=== PATIENT | female | born 1975 | race Caucasian/White ===

== ENCOUNTER 2017-10-05 19:55 | Observation (INO) ==
[2017-10-05] MEDS ORDERED: NS 1,000 ML IV ONE (20:28)
--- NOTE | 2017-10-05 20:31 | Emergency Department Report ---
General Adult HPI - General Chief complaint: Medical Emergency <Arpita Hansen 10/05/17 20:31> Stated complaint: L side pain <Arpita Hansen 10/05/17 20:31> Time Seen by Provider: 10/05/17 20:19 <Arpita Hansen 10/05/17 20:31> Source: family ( who is at bedside) <Arpita Hansen 10/05/17 20:31> Mode of arrival: EMS <Arpita Hansen 10/05/17 20:31> Limitations: altered mental status <Arpita Hansen 10/05/17 20:31> - History of Present Illness HPI narrative: She is brought in by EMS tonight. Her report HPI. States that she has been having some low back pain and she had a steroid injection done recently (10/02/17). Tonight she was c/o back pain and he had her do some stretching on the floor. She got up and got onto the cough and started yelling out in pain. She has not spoken to him since. Can shake her head yes and no and does follow commands but she does not answer with words. She also can move all fingers and toes but does not lift up her extremities. She had been feeling well per her otherwise. <Arpita Hansen 10/05/17 20:35> Onset (ago): minute(s) <Arpita Hansen 10/05/17 20:31> Severity: moderate <Arpita Hansen 10/05/17 20:31> Relieving factors: none <Arpita Hansen 10/05/17 20:31> Exacerbating factors: none <Arpita Hansen 10/05/17 20:31> Associated symptoms: denies other symptoms <Arpita Hansen 10/05/17 20:31> Treatments prior to arrival: none <Arpita Hansen 10/05/17 20:31> - Related Data Home Medications Medication Instructions Recorded Confirmed Chlorzoxazone [Parafon Forte] 500 mg PO HS 10/05/17 10/05/17 Cholecalciferol (Vitamin D3) 5,000 unit PO DAILY 10/05/17 10/05/17 [Vitamin D3] Vitamin B 1 tab PO DAILY 10/05/17 10/05/17 <Arpita Hansen 10/05/17 20:31> Allergies Allergy/AdvReac Type Severity Reaction Status Date / Time oxycodone Allergy Severe Chest Verified 10/05/17 20:10 Tightness propoxyphene Allergy Intermediate Verified 10/05/17 20:10 tramadol Allergy Unknown CHEST Verified 10/05/17 20:10 TIGHTNESS <Arpita Hansen 10/05/17 20:31> Review of Systems Limitations: ROS unobtainable due to patient's medical condition <TyroneArpita 10/05/17 20:35> Constitutional: Denies: fever, chills <TyroneArpita 10/05/17 20:35> Gastrointestinal: Denies: nausea, vomiting, diarrhea <TyroneArpita Sun 20:35> Integumentary: Denies: rash <TyroneArpita 10/05/17 20:35> [facility] Patient Stated Medical History Depression Yes <Arpita Hansen 10/05/17 23:04> - Social History Smoking status: Never smoker <Arpita Hansen 10/05/17 20:35> Substance use type: does not use <Arpita Hansen 10/05/17 20:35> Alcohol intake frequency: does not drink <TyroneArpita 10/05/17 20:35> Physical Exam - Limitations Limitations: other (Medical Condition) <TyroneArpita 10/05/17 20:35> - General General appearance: alert, in no apparent distress <Arpita Hansen 10/05/17 20:35> - Normal Exams: Eyes:: Pupils are PERRLA w/ EOMI, No scleral icterus, irritation, or foreign bodies noted <TyroneArpita 10/05/17 20:35> ENMT:: No facial trauma, nasal exudates, pharyngeal erythema, or exudates are noted <MilagrosroldanArpita 10/05/17 20:35> Chest/Respirations:: Clear all ames, with good airflow, and symmetry bilaterally <Arpita Hansen 10/05/17 20:35> Cardiovascular:: Regular rate and rhythm, without murmur or gallop, Pulses 2+ all extremities, capillary refill, <2 seconds all extremities <Arpita Hansen 10/05/17 20:35> Abdomen:: Bowel sounds positive, soft, non-tender, non-distended, no hepatosplenomegaly, masses or bruits noted <Arpita Hansen 10/05/17 20:35> Lymphatic:: No lymphadenopathy, or lymphedema noted <Arpita Hansen 10/05/17 20:35> Integumentary:: No rashes, hives, or bruising noted <Arpita Hansen 10/05/17 20:35> Neurological:: Patient is alert <Arpita Hansen 10/05/17 20:35> Psychiatric:: Patient exhibits, appropriate attention, emotion and affect < Arpita Hansen 10/05/17 20:35> Course Vital Signs Temperature 98.9 F 10/05/17 20:04 Pulse Rate 73 10/05/17 20:04 Respiratory Rate 18 10/05/17 20:04 Blood Pressure 117/59 10/05/17 20:04 Pulse Oximetry 99 10/05/17 20:04 Temperature 97.5 F 10/06/17 14:43 Pulse Rate 66 10/06/17 14:43 Respiratory Rate 16 10/06/17 14:43 Blood Pressure 112/56 10/06/17 14:43 Pulse Oximetry 98 10/06/17 14:43 <Arpita Hansen 10/05/17 20:31> Medical Decision Making - MDM Narrative Medical decision making narrative: Labs and CT today are negative. I did go back into room to reevaluation patient. She does still answer questions with nodding her head and is alert but does not speak. She does not move her extremities when asked. I do not feel that she would be able to walk. Discussed HPI, exam, labs, and CT findings with Dr Fish. He will accept for observation admission at this time. <Arpita Hansen 10/06/17 16:49> - Differential Diagnosis DD: CVA, TIA, conversion disorder, seizures, electrolyte abnormality, infec < Arpita Hansen N - 10/06/17 16:49> - Lab Data Lab results reviewed: Yes: I reviewed the patient's lab results. <Arpita Hansen N - 10/05/17 23:04> Result diagrams: 10/05/17 20:19 10/06/17 04:44 <Arpita Hansen N - 10/05/17 20:31> Lab Results 10/05/17 10/05/17 10/05/17 Range/Units 20:19 20:19 20:53 WBC 8.8 (4.5-11.0) T/MM3 RBC 4.73 (4.00-5.20) M/MM3 Hgb 14.6 (12-16) GM/DL Hct 42.5 (36-46) % MCV 89.9 (80-100) UM3 MCH 30.9 (26-34) UUG MCHC 34.4 (31-37) GM/DL RDW Std Deviation 39.9 (36.9-50.2) FL Plt Count 248 (130-400) T/MM3 MPV 9.8 (9.4-12.4) UM3 Immature Gran % (Auto) 0.1 (0.0-0.5) % Neut % (Auto) 53.0 (33-66) % Lymph % (Auto) 38.0 (23-45) % [place] % (Auto) 7.1 (0-9.0) % Eos % (Auto) 1.6 (0-4) % Baso % (Auto) 0.2 (0-2) % Neut # (Auto) 4.7 (1.8-7.7) T/MM3 Lymph # (Auto) 3.4 (1-4.8) T/MM3 [place] # (Auto) 0.6 (0-0.8) T/MM3 Eos # (Auto) 0.1 (0-0.5) T/MM3 Baso # (Auto) 0.0 (0-0.2) T/MM3 Abs Immat Gran (auto) 0.01 (0.00-0.03) T/MM3 Turbidity < 20 (0-20) Sodium 142 (134-144) MEQ/L Potassium 3.6 (3.6-5) MEQ/L Chloride 101 (98-107) MEQ/L Carbon Dioxide 25 (22-30) MEQ/L Anion Gap 16 H (5-15) MEQ/L BUN 16.0 (7-17) MG/DL Creatinine 0.8 (0.7-1.2) MG/DL GFR Calculation 79 BUN/Creatinine Ratio 20 (6-26) RATIO Glucose 107 (65-110) MG/DL Calculated Osmolality 274 (261-280) MOSM/KG Calcium 9.6 (8.4-10.2) MG/DL Total Bilirubin 0.30 (0.20-1.30) MG/DL Icterus Index < 2 (0-7) AST 43 H (14-36) U/L ALT 41 (9-52) U/L Alkaline Phosphatase 90 (38-126) U/L Total Protein 8.3 H (6.3-8.2) G/DL Albumin 5.0 (3.5-5.0) G/DL Globulin 3.3 (2.4-3.6) G/DL Albumin/Globulin Ratio 1.5 (1.1-2.2) RATIO Serum , Qual Negative (Negative) Specimen Hemolysis < 15 (0-25) Ur Collection Type Urine Color (YELLOW) Urine Clarity Urine pH (5.0-8.0) Ur Specific Sasser (1.015-1.025) Urine Protein (NEGATIVE) Urine Glucose (UA) (NEGATIVE) Urine Ketones (NEGATIVE) Urine Occult Blood (NEGATIVE) Urine Nitrate (NEGATIVE) Urine Bilirubin (NEGATIVE) Urine Urobilinogen (NORMAL) EU/DL Ur Leukocyte Esterase (NEGATIVE) Urinalysis Comment Urine Opiates Screen ng/mL Ur Oxycodone Screen ng/mL Urine Methadone Screen ng/mL Ur Propoxyphene Screen ng/mL Ur Barbiturates Screen ng/mL U Tricyclic Antidepress ng/mL Ur Phencyclidine Scrn ng/mL Ur Amphetamines Screen ng/mL U Methamphetamines Scrn ng/mL U Benzodiazepines Scrn ng/mL Urine Cocaine Screen ng/mL U Cannabinoids Screen ng/mL Alcohol, Quantitative <10 (<10) MG/DL 10/05/17 10/05/17 Range/Units 22:05 22:05 WBC (4.5-11.0) T/MM3 RBC (4.00-5.20) M/MM3 Hgb (12-16) GM/DL Hct (36-46) % MCV (80-100) UM3 MCH (26-34) UUG MCHC (31-37) GM/DL RDW Std Deviation (36.9-50.2) FL Plt Count (130-400) T/MM3 MPV (9.4-12.4) UM3 Immature Gran % (Auto) (0.0-0.5) % Neut % (Auto) (33-66) % Lymph % (Auto) (23-45) % [place] % (Auto) (0-9.0) % Eos % (Auto) (0-4) % Baso % (Auto) (0-2) % Neut # (Auto) (1.8-7.7) T/MM3 Lymph # (Auto) (1-4.8) T/MM3 [place] # (Auto) (0-0.8) T/MM3 Eos # (Auto) (0-0.5) T/MM3 Baso # (Auto) (0-0.2) T/MM3 Abs Immat Gran (auto) (0.00-0.03) T/MM3 Turbidity (0-20) Sodium (134-144) MEQ/L Potassium (3.6-5) MEQ/L Chloride (98-107) MEQ/L Carbon Dioxide (22-30) MEQ/L Anion Gap (5-15) MEQ/L BUN (7-17) MG/DL Creatinine (0.7-1.2) MG/DL GFR Calculation BUN/Creatinine Ratio (6-26) RATIO Glucose (65-110) MG/DL Calculated Osmolality (261-280) MOSM/KG Calcium (8.4-10.2) MG/DL Total Bilirubin (0.20-1.30) MG/DL Icterus Index (0-7) AST (14-36) U/L ALT (9-52) U/L Alkaline Phosphatase (38-126) U/L Total Protein (6.3-8.2) G/DL Albumin (3.5-5.0) G/DL Globulin (2.4-3.6) G/DL Albumin/Globulin Ratio (1.1-2.2) RATIO Serum , Qual (Negative) Specimen Hemolysis (0-25) Ur Collection Type Urine, clean catch Urine Color Yellow (YELLOW) Urine Clarity Clear Urine pH 6.5 (5.0-8.0) Ur Specific Sasser 1.010 L (1.015-1.025) Urine Protein Negative (NEGATIVE) Urine Glucose (UA) Negative (NEGATIVE) Urine Ketones Negative (NEGATIVE) Urine Occult Blood Negative (NEGATIVE) Urine Nitrate Negative (NEGATIVE) Urine Bilirubin Negative (NEGATIVE) Urine Urobilinogen 0.2 (NORMAL) EU/DL Ur Leukocyte Esterase Negative (NEGATIVE) Urinalysis Comment Microscopic not ind. Urine Opiates Screen Negative ng/mL Ur Oxycodone Screen Negative ng/mL Urine Methadone Screen Negative ng/mL Ur Propoxyphene Screen Negative ng/mL Ur Barbiturates Screen Negative ng/mL U Tricyclic Antidepress Negative ng/mL Ur Phencyclidine Scrn Negative ng/mL Ur Amphetamines Screen Negative ng/mL U Methamphetamines Scrn Negative ng/mL U Benzodiazepines Scrn Negative ng/mL Urine Cocaine Screen Negative ng/mL U Cannabinoids Screen Negative ng/mL Alcohol, Quantitative (<10) MG/DL <MilagrosroldanArpita Corinne 10/05/17 20:31> - Radiology Data Radiology results reviewed: Yes: I reviewed the patient's radiology results. < MilagrosroldanArpita Corinne 10/05/17 23:04> Ct Head without contrast: no acute findings <MilagrosroldanArpita Corinne 10/05/17 23:04> - EKG Data EKG #1 EKG results narrative: Sinus Rhythm. 61 bpm. No STEMI. <Bari Swanson C - 10/05/17 23:42> Disposition Clinical Impression: Weakness Back pain Qualifiers: Back pain location: low back pain Chronicity: acute Back pain laterality: midline Sciatica presence: without sciatica Qualified Code(s): M54.5 - Low back pain <MilagrosroldanArpita Corinne 10/05/17 23:29> Disposition: 02 To [facility] <MilagrosroldanArpita N 10/05/17 23:29> Condition: Stable <MilagrosroldanArpita N 10/05/17 23:29> Instructions: <TyroneArpita Corinne 10/05/17 20:31> Prescriptions: No Action Cholecalciferol (Vitamin D3) [Vitamin D3] 5,000 unit PO DAILY Chlorzoxazone [Parafon Forte] 500 mg PO HS Vitamin B 1 tab PO DAILY <Arpita Hansen N 10/05/17 20:31> Referrals: Chris Post MD [Family Provider] - <Arpita Hansen 20:31> Forms: <Arpita Hansen N 10/05/17 20:31> Time of Disposition: 23:29 <Arpita Hansen 10/05/17 23:29> - Seen By: midlevel <Arpita Hansen 10/05/17 23:29>
[2017-10-05] MEDS: SALINE FLUSH 10ml SYRINGE IVF PRN (22:36)
[2017-10-06 00:13] VITALS: BMI 26.5
--- NOTE | 2017-10-06 00:24 | History & Physical Report ---
History of Present Illness Date: 10/06/17 Chief complaint: back pain, gen weakness HPI: This is a 42 y/o w/ h/o back pain s/p recent epidural injection on 10/02 along w / h/o depression who presents w/ acute back pain tonight and weakness. Patient apparently c/o back pain tonight and tried some stretching exercises however according to patient's spouse she cried out in pain and sat on the couch and would not verbalize much after that. Most of history obtained from the patient 's via ER physician and then during my visit w/ the patient she confirmed the story by nodding "yes". She at present states she has some low back pain and upper back pain as well into her bilateral shoulders. In ER, patient is alert and awake and in no acute distress, answers questions by shaking her head 'yes' and 'no' but does not verbalize much. Patient received 0.5mg IV ativan x one and had a CT of her head which was negative. Patient's UDS is negative, UA negative, EtOH negative, CMP WNL w/ exception of slightly elevated LFT, WBC = 8.8, Hgb =14.6 and BUN/Cr = 16/0.8 Patient to be admitted to the Hospitalist service for further evaluation and management. Review of Systems All systems PM: 10-point ROS was reviewed, no additional remarkable complaints except Past Medical History Low back pain - recent MRI shows some disk disease at L4-L5 and L5-S1 but no impingement. She had epidural steroid injection on 10/02/17. Has h/o depression w/ suicidal ideations in 2010 per report Family History Updates: No significant family history reported. - Social History Smoking status: Never smoker Medications Home Medications Medication Instructions Recorded Confirmed Type Chlorzoxazone [Parafon Forte] 500 mg PO HS 10/05/17 10/05/17 History Cholecalciferol (Vitamin D3) 5,000 unit PO DAILY 10/05/17 10/05/17 History [Vitamin D3] Vitamin B 1 tab PO DAILY 10/05/17 10/05/17 History Allergies Allergy/AdvReac Type Severity Reaction Status Date / Time oxycodone Allergy Severe Chest Verified 10/05/17 20:10 Tightness propoxyphene Allergy Intermediate Verified 10/05/17 20:10 tramadol Allergy Unknown CHEST Verified 10/05/17 20:10 TIGHTNESS Exam Vital Signs: Temperature 96.6 F L 10/06/17 00:12 Pulse Rate 55 L 10/06/17 00:12 Respiratory Rate 18 10/06/17 00:12 Blood Pressure 102/60 10/06/17 00:12 Pulse Oximetry 99 10/06/17 00:00 Height/Weight/BMI: Height 1.7 m Weight 76.8 kg Body Mass Index 26.5 - Constitutional Present: no acute distress, well nourished, well developed - Routine HEENT Exam Head: Present: normocephalic, atraumatic Eye: Present: EOMI, PERRL. Absent: scleral injection ENT: Present: mucous membranes dry, dentition normal, nares patent - Routine Neck Exam Present: supple, full ROM. Absent: JVD - Routine Respiratory Exam Present: CTA bilaterally. Absent: accessory muscle use, respiratory distress, wheezes - Routine Cardiovascular Exam Present: RRR - Routine Abdominal Exam Present: soft, normoactive bowel sounds, non distended, non tender - Routine Extremities Exam Absent: cyanosis, clubbing, edema - Routine Neurological Exam Present: alert, oriented X3, CN II-XII intact, moving all extremities Patient is not speaking, but is alert, awake and nods "yes" and "no" appropriately to questions and understands what I am asking and is able to communicate non-verbally. She moves her extremities, though somewhat slowly and deliberately; she moves her digits, makes a fist, lifts arms and legs; she subjectively is concerned that left side a little weaker than right; gait not tested. No nystagmus; - Routine Psychiatric Exam Comments: Flat affect; Results - Labs CBC & Chem 7: 10/05/17 20:19 10/06/17 04:44 Assessment and Plan Assessment and Plan: Assessment: 1) Acute on Chronic LBP 2) Acute Weakness - generalized - difficult to discern if localized or not however subjectively patient feels left side a little weaker compared to right 3) Patient is not verbalizing - she is alert and awake and nodding head to questions appropriately so 4) H/o Depression Plan: Admit to Hospitalist service Neurology consult - nursing to notify in the AM Dr. Meng - appreciate his help Acetaminophen prn mild pain; [facility] 5/325mg po q 6 hours prn moderate pain Heating pad prn Prn Lidoderm patch if needed SCDs Production [employer] BP IVFs that of NS at 100cc /hour overnight until taking po Clear liquid diet - advance as tolerated Neuro checks Hold home meds for now I discussed the plan of care w/ the patient and she nodded that she understood the plan. 10/06/2017-Dr. Barron I have seen and examined the patient. I've reviewed the H&P above and agree. Please see my additions below. Chief complaint: Sudden onset of weakness/non-verbal History of present illness: The patient is a fairly healthy 42-year-old female. History is obtained from the chart and her . The patient had a steroid epidural injection here at [facility] on Thursday , 10/02/2017. Her states that her back was hurting her more last night so she laid on the floor on her back and put her knees to her chest to try to stretch and then yelled out in pain and after that has not spoken. She can nod her head yes or shake her head no. She can move her arms and legs weekly. She shakes her head yes to having a headache which feels like a migraine. She's had migraines in the past. She also complains of neck pain and low back pain. She shakes her head yes to feeling short of breath. She denies chest pain, abdominal pain, nausea or vomiting, diarrhea, and dysuria. She has not had any recent fevers, symptoms of respiratory infection, or cough. Per her , she did okay after her epidural injection and actually went to work yesterday. No history of seizures. 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 Per family she was not hospitalized with depression. Chronic low back pain with MRI showing disc disease at L4-L5 and L5-S1 but no impingement. Epidural steroid injection on 10/02/2017. No recent vaccinations. Per her , she has had no hospitalizations other than childbirth, West Nile virus and now with this weakness Social history: Nonsmoker, , employed Family history: No strokes, no cancer Medications reviewed and she is on Parafon forte, vitamin D3, and vitamin B. Allergies reviewed Comprehensive review of systems is difficult to obtain because of the patient's nonverbal status. Physical exam: Afebrile, heart rate 55-72, respirations 18-20, blood pressure 102/56 to 117/61. O2 sat 99% on room air Gen.: This is a well-developed well-nourished female. Her face is slightly flushed. She appears in no distress. HEENT: Pupils are equal round and reactive, sclerae anicteric, ocular movements are intact, oropharynx is moist Neck: Supple Chest: Clear to auscultation bilaterally Cardio Vascular: Regular rate and rhythm without murmur Abdomen: Soft, nontender, nondistended with positive bowel sounds : No Leyva Extremities: SCDs are on, no clubbing cyanosis or edema. Skin: Warm and dry and without rashes: Face is just mildly flushed Psychiatric: She nods her head yes and no, she does not appear distressed or tearful, possibly mildly anxious Neurologic: Significant for her being nonverbal but she responds to yes no questions and seems to be responding appropriately. She follows commands. All of her movements are very weak bilaterally. Cranial nerves II through XII are grossly intact but movements are weak bilaterally. Motor strength is equal in the upper and lower extremities but very weak bilaterally. CT head: No acute intracranial abnormality EKG: Normal sinus rhythm CBC is essentially normal with normal differential CMP on admission showed an anion gap of 16 which improved to 8 this morning. AST was 43 and improved to 24. Total protein was 8.3 and improved to 6.6 today. TSH was normal at 3.24. Serum test was negative. Urinalysis is essentially normal other than specific gravity 1.010 which is low Urine drug screen is negative. Quantitative alcohol level is less than 10 Impression Sudden onset of generalized weakness and inability to speak of uncertain etiology Headache-with history of migraine Neck pain Chronic low back pain with recent epidural 10/02/2017 History of depression History of West Nile virus Plan I did call and speak with Dr. Meng who will be seeing the patient this morning. We'll await his recommendations after he examines the patient. Consult speech therapy to assess swallow Continue normal saline until the patient can eat and drink well Discussed with the patient's , the patient, her nurse, and Dr. Meng. DVT Prophylaxis: SCD's Resuscitation Status: Full Code - Physician Narrative Physician: Caitlyn Bernal MD Narrative: Date: 10/06/17 Time: 0015 Hospital Course Summary Disclaimer: The visit summary below is not to be considered part of the above Progress Note.
[2017-10-06] MEDS: SALINE FLUSH 10ml SYRINGE IVF PRN (00:48)
[2017-10-06] MEDS: NS 1,000 ML IV SCH ×3 (00:48→22:33)
[2017-10-06] MEDS: HYDROCODONE/APAP 5mg/325mg TABLET PO PRN ×2 (01:24→14:01)
--- NOTE | 2017-10-06 08:07 | CT Scan Report ---
Indication: altered mental status PROCEDURE: CT head/brain wo con: Encounter: Initial Comparison: March 03, 2015 Technique: Axial CT images through the head were performed without contrast. Iterative Reconstruction dose reducing technique was utilized. FINDINGS: The ventricles are of normal size, shape, and configuration for the patient's age. There is no evidence of acute intracranial hemorrhage, midline displacement, or mass effect. The CT attenuation of the brain parenchyma is normal within the cerebellum, brain stem, and cerebral hemispheres. The tympanic cavities and mastoid air cells are free of appreciable disease. There are no definite fractures of the skull base, calvarium, or visualized portion of the midface. IMPRESSION: No CT evidence of acute intracranial abnormality. There is a preliminary report by [email or web address]. .
[2017-10-06] MEDS: ACETAMINOPHEN 325 MG TABLET PO PRN ×2 (09:51→18:31)
[2017-10-06] MEDS: PredniSONE 20 MG TABLET PO SCH (09:58)
--- NOTE | 2017-10-06 13:44 | Consultation ---
DATE OF CONSULTATION 10/06/[address] Barron CHIEF COMPLAINT Speech problem and weakness. HISTORY OF PRESENT ILLNESS The patient is a 42-year-old female with history of chronic lower back pain. The patient had an epidural injection on October 02, 2017. Her back pain did not respond well to the epidural. The patient was having severe pain the night before admission. She was doing some stretching exercise and this aggravated her pain. She suddenly became nonverbal and weak all over. She was brought to the emergency room. Her condition has not improved since then. She had a CT of the brain that was unremarkable. Her labs were unremarkable. Her vitals showed some mild bradycardia. The patient has a history of depression and anxiety disorder. She never had any episodes similar to what she had this time. She has been complaining of a severe headache in addition to her lower back pain. 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 This patient had a full recovery from that. No prior history of seizure, loss of consciousness of stroke-like symptoms. PHYSICAL EXAMINATION The patient was awake, alert, nonverbal. She tends to follow commands with no problem. She has been nodding her head for "yes" answers. The patient was slightly uncomfortable. She reports having some moderate headache and lower back pain. Her motor examination was 5-/5 in all extremities. Sensory examination was symmetrical for light touch, temperature, sensation and vibration. Deep tendon reflexes were 2/4. Plantar reflexes were in flexion bilaterally. Coordination was very slow. ASSESSMENT The patient's symptoms of mutism and unwillingness to speak are probably psychological in nature associated with depression and anxiety. This does not follow any particular neurological pattern. The patient has no obvious confusion. She is able to follow commands and answer questions using her fingers and nodding her head. There is no evidence of focal neurological deficit on examination. This is most likely related to anxiety and depression and lack of response to pain management and the failure of the epidural injection. PLAN 1. Encourage patient to move and do more activity. Physical therapy can be a good option to stimulate the patient's activities. 2. Consider psychiatric evaluation for depression and anxiety if problem progresses. 3. Optimize treatment for headache using steroid-like prednisone orally 10-20 mg a day or IV Decadron 2-4 mg q.d. to b.i.d. as needed. 3. Optimize treatment for lower back pain by using pain medication and physical therapy. 4. If the patient's condition keeps progressing or the patient is not responding well to treatment, consider an MRI of the brain at that point. MTDD
[2017-10-06] MEDS: ClonazePAM 0.5 MG TABLET PO SCH ×2 (14:00→20:08)
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
[2017-10-06] MEDS ORDERED: SERTRALINE 25 MG TABLET PO SCH (21:00)
[2017-10-07] MEDS ORDERED: FALL RISK - PHARMACY CONSULT XX ONE (00:27)
[2017-10-07] MEDS: HYDROCODONE/APAP 5mg/325mg TABLET PO PRN (05:21)
[2017-10-07 07:29] VITALS: RESP 14
[2017-10-07] MEDS: PredniSONE 20 MG TABLET PO SCH (08:56)
[2017-10-07] MEDS: ClonazePAM 0.5 MG TABLET PO SCH (08:56)
[2017-10-07] MEDS: NS 1,000 ML IV SCH (08:56)
--- NOTE | 2017-10-07 10:18 | Progress Note ---
- Date 10/07/17 Subjective: Muriel is seen today in follow up this morning. She reported to nursing staff this morning that she had a brief episode of chest pain and shortness of breath lasting seconds- minutes. She reports feeling anxious during this time. She is having a left frontal headache this morning that is not abnormal for her since having west Nile years ago. She complains of feeling weakness on the left side of her body. No neurologic deficits appreciated during exam. CN intact. Objective Vital signs: Temperature 97.5 F 10/07/17 07:28 Pulse Rate 89 10/07/17 07:28 Respiratory Rate 14 10/07/17 07:28 Blood Pressure 142/79 H 10/07/17 07:28 Pulse Oximetry 100 10/07/17 07:28 Height/Weight/BMI: Height 1.7 m Weight 78.9 kg Body Mass Index 26.5 - Constitutional Present: no acute distress, well nourished, well developed - Routine HEENT Exam Eye: Present: EOMI ENT: Present: mucous membranes moist, dentition normal - Routine Respiratory Exam Present: CTA bilaterally. Absent: wheezes - Routine Cardiovascular Exam Present: RRR, S1, S2. Absent: murmur - Routine Abdominal Exam Present: soft, normoactive bowel sounds, non distended. Absent: tenderness - Routine Back/Spine/Pelvis Exam Back/Spine: Present: full ROM - Routine Skin Exam Present: intact, dry, warm - Routine Neurological Exam Present: alert, oriented X3, CN II-XII intact, moving all extremities, normal speech. Absent: sensory deficit, motor deficit, facial asymmetry - Routine Lymphatic Exam Lymphatic: Absent: adenopathy - Routine Psychiatric Exam Present: normal affect, cooperative Results - Labs CBC & Chem 7: 10/05/17 20:19 10/06/17 04:44 Assessment and Plan Assessment and Plan: Impression Sudden onset of generalized weakness and inability to speak of uncertain etiology Headache-with history of migraine Neck pain Chronic low back pain with recent epidural 10/02/2017 History of depression History of [place] virus 10/07 Given chest pain will obtain EKG and serial troponins. Chest pain continues to be resolved during examination Patient does feel weak on the left side however how deficits are appreciated on exam. She is speaking normally and able to give specific details regarding history and present illness. Appreciate Dr Meng consultation for neurological evaluation and recommendations Appreciated Dr Desir recommendations Encourage work with PT/OT for strengthening Discussed with nursing and attending - Physician Narrative Narrative: Date: 10/07/17 Time: 1012 Hospital Course Summary Disclaimer: The visit summary below is not to be considered part of the above Progress Note. Hospital Course: 10/07 Given chest pain will obtain EKG and serial troponins. Chest pain continues to be resolved during examination Patient does feel weak on the left side however how deficits are appreciated on exam. She is speaking normally and able to give specific details regarding history and present illness. Appreciate Dr Meng consultation for neurological evaluation and recommendations Appreciated Dr Desir recommendations Encourage work with PT/OT for strengthening Discussed with nursing and attending
[2017-10-07] MEDS ORDERED: GADOTERIDOL 279.3mg/ml - 15ml vial IVP ONE (10:51)
[2017-10-07] MEDS ORDERED: SALINE FLUSH 10ml SYRINGE ONE (10:51)
--- NOTE | 2017-10-07 11:25 | Magnetic Resonance Report ---
Indication: headaches, episodic weakness PROCEDURE: MR head/brain wo/w con: Encounter: Initial Comparisons: Head CT dated October 05, 2017 Technique: Multiplanar, multisequence, MR imaging of the head with and without contrast was acquired. Contrast: 15 mL of ProHance FINDINGS: The ventricles are of normal size, shape, and contour for the patient's age. The brain stem, cerebellum, and cerebral hemispheres have a normal morphologic appearance as well as MR signal intensity on all pulse sequences. Following intravenous administration of contrast, no areas of abnormal enhancement are evident. There are no areas of restricted diffusion to suggest an acute infarct. There is no evidence of an intracranial mass lesion, intracranial hemorrhage, or hydrocephalus. The visualized portions of the orbits, calvarium, paranasal sinuses, and skull base demonstrate no significant abnormality. IMPRESSION: Normal exam .
[2017-10-07 15:13] VITALS: BP 118/63; PULSE 75; TEMP 98.2; O2SAT 98
--- NOTE | 2017-10-07 15:37 | Progress Note ---
DATE 10/07/[address] Barron CHIEF COMPLAINT Left-sided weakness and speech problem. HISTORY OF PRESENT ILLNESS The patient has done much better overnight. She was able to speak again with no difficulties and no dysarthria problem. She has reported some mild left- sided weakness and numbness earlier this morning. This has slightly improved since then. She is also having some severe unusual headache affecting the left frontal head region. The patient said that she never had a similar headache in the past. Her examination was overall unremarkable with minimal weakness on the left compared to the right. There was no sensory deficit. Her blood pressure has been in the 140/79 range. The rest of her workup has been unremarkable. The patient's condition has been attributed mainly to conversion disorder. There is still some concern for some other neurological problem causing some of the headache and the weakness on the left side. ASSESSMENT 1. Conversion disorder causing the patient to have speech difficulties and generalized weakness. This has improved significantly with reassurance and rest. 2. New left-sided weakness and headache. This is probably related to the anxiety and stress disorders. The patient is very concerned with her family about other issues going on and she will feel more comfortable having an MRI of the brain. PLAN 1. Obtain an MRI of the brain with and without contrast to rule out acute stroke and other brain lesions. 2. Optimize treatment for anxiety and depression. 3. Continue physical and occupational therapy to improve physical functioning and mobility. MARILEE
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
[2017-10-07] MEDS ORDERED: ClonazePAM 0.5 MG TABLET PO SCH (21:00)
--- NOTE | 2017-10-07 21:39 | Discharge Summary ---
Discharge Information Date of admission: 10/05/17 23:56 Anticipated date of discharge: 10/07/17 Attending Physician: Caitlyn Barron MD Primary care physician: Chris Post MD Consults: 10/06/17 IRU Screening [Inpatient Rehab Screening] [CONS] Routine 10/06/17 09:23 Physician Consult [CONS] Routine Consulting Provider: Ligia Desir Reason For Exam: inability to speak, ?conversion d/o Ordering Provider has Notified [employer] T[employer] Decorator: Yes Dr. Meng for weakness and inability to speak Sudden onset of generalized weakness and inability to speak-most likely secondary to conversion disorder-markedly improved at time of discharge Headache-with history of migraine-improved Neck pain Chronic low back pain with recent epidural 10/02/2017 Depression, generalized anxiety disorder History of West Nile virus - Laboratory Labs: 10/06/17 04:44 Laboratory Tests 10/05/17 10/05/17 10/05/17 20:19 20:19 20:53 WBC 8.8 Hgb 14.6 Plt Count 248 Anion Gap 16 H Troponin I TSH Serum , Qual Negative Urine Opiates Screen Ur Oxycodone Screen Urine Methadone Screen Ur Propoxyphene Screen Ur Barbiturates Screen U Tricyclic Antidepress Ur Phencyclidine Scrn Ur Amphetamines Screen U Methamphetamines Scrn U Benzodiazepines Scrn Urine Cocaine Screen U Cannabinoids Screen Alcohol, Quantitative <10 10/05/17 10/06/17 10/07/17 22:05 04:44 09:47 WBC Hgb Plt Count Anion Gap 8 Troponin I < 0.012 TSH 3.24 Serum , Qual Urine Opiates Screen Negative Ur Oxycodone Screen Negative Urine Methadone Screen Negative Ur Propoxyphene Screen Negative Ur Barbiturates Screen Negative U Tricyclic Antidepress Negative Ur Phencyclidine Scrn Negative Ur Amphetamines Screen Negative U Methamphetamines Scrn Negative U Benzodiazepines Scrn Negative Urine Cocaine Screen Negative U Cannabinoids Screen Negative Alcohol, Quantitative 10/07/17 14:35 WBC Hgb Plt Count Anion Gap Troponin I < 0.012 TSH Serum , Qual Urine Opiates Screen Ur Oxycodone Screen Urine Methadone Screen Ur Propoxyphene Screen Ur Barbiturates Screen U Tricyclic Antidepress Ur Phencyclidine Scrn Ur Amphetamines Screen U Methamphetamines Scrn U Benzodiazepines Scrn Urine Cocaine Screen U Cannabinoids Screen Alcohol, Quantitative - Radiology Radiology: Date of Exam: 10/07/17 Ordering Provider: Caitlyn Barron MD Type of Exam(s): MR head/brain wo/w con Reason for Exam(s): headaches, episodic weakness Indication: headaches, episodic weakness PROCEDURE: MR head/brain wo/w con: Encounter: Initial Comparisons: Head CT dated October 05, 2017 Technique: Multiplanar, multisequence, MR imaging of the head with and without contrast was acquired. Contrast: 15 mL of ProHance FINDINGS: The ventricles are of normal size, shape, and contour for the patient's age. The brain stem, cerebellum, and cerebral hemispheres have a normal morphologic appearance as well as MR signal intensity on all pulse sequences. Following intravenous administration of contrast, no areas of abnormal enhancement are evident. There are no areas of restricted diffusion to suggest an acute infarct. There is no evidence of an intracranial mass lesion, intracranial hemorrhage, or hydrocephalus. The visualized portions of the orbits, calvarium, paranasal sinuses, and skull base demonstrate no significant abnormality. IMPRESSION: Normal exam . Date of Exam: 10/05/17 Ordering Provider: Arpita Hansen APRN Type of Exam(s): CT head/brain wo con Reason for Exam(s): altered mental status Indication: altered mental status PROCEDURE: CT head/brain wo con: Encounter: Initial Comparison: March 03, 2015 Technique: Axial CT images through the head were performed without contrast. Iterative Reconstruction dose reducing technique was utilized. FINDINGS: The ventricles are of normal size, shape, and configuration for the patient's age. There is no evidence of acute intracranial hemorrhage, midline displacement, or mass effect. The CT attenuation of the brain parenchyma is normal within the cerebellum, brain stem, and cerebral hemispheres. The tympanic cavities and mastoid air cells are free of appreciable disease. There are no definite fractures of the skull base, calvarium, or visualized portion of the midface. IMPRESSION: No CT evidence of acute intracranial abnormality. There is a preliminary report by [facility]. . History of Present Illness HPI: This is a 42 y/o w/ h/o back pain s/p recent epidural injection on 10/02 along w / h/o depression who presents w/ acute back pain tonight and weakness. Patient apparently c/o back pain tonight and tried some stretching exercises however according to patient's spouse she cried out in pain and sat on the couch and would not verbalize much after that. Most of history obtained from the patient 's via ER physician and then during my visit w/ the patient she confirmed the story by nodding "yes". She at present states she has some low back pain and upper back pain as well into her bilateral shoulders. In ER, patient is alert and awake and in no acute distress, answers questions by shaking her head 'yes' and 'no' but does not verbalize much. Patient received 0.5mg IV ativan x one and had a CT of her head which was negative. Patient's UDS is negative, UA negative, EtOH negative, CMP WNL w/ exception of slightly elevated LFT, WBC = 8.8, Hgb =14.6 and BUN/Cr = 16/0.8 Patient to be admitted to the Hospitalist service for further evaluation and management. Objective Vital signs: Temperature 98.2 F 10/07/17 15:12 Pulse Rate 75 10/07/17 15:12 Respiratory Rate 14 10/07/17 15:12 Blood Pressure 118/63 10/07/17 15:12 Pulse Oximetry 98 10/07/17 15:12 Height/Weight/BMI: Height 1.7 m Weight 78.9 kg Body Mass Index 26.5 Comments: The patient is alert and oriented 3. Speech is fluent. Affect is normal. Chest is clear to auscultation. Cardiovascular reveals a regular rate and rhythm. Abdomen is soft and nontender. Extremities are free of edema. Neurologic reveals no focal deficits. Hospital Course This is a general summary of the patient's hospital course. For more details refer to the complete medical record. Hospital course: The patient was admitted early in the morning on 10/06/2017 with sudden onset of inability to speak and generalized weakness. This occurred suddenly after she was stretching and then had severe back pain. The patient had undergone epidural steroid injection on 10/02/2017. CT head was essentially normal. The patient was evaluated by Dr. Meng who was concerned for probable conversion disorder. He recommended psychiatric evaluation, PT and OT, and encouragement to the patient. Dr. Desir was consulted and thought the patient was probably depressed and had generalized anxiety. She did start the patient on Zoloft and restarted her clonazepam which she had used in the past. The patient' s symptoms waxed and waned but generally improved during the hospital course. PT and OT did see the patient and felt she was stable for dismissal to home. She was able to walk up and down stairs. They did offer a walker for her to use at home. Dr. Desir did recommend continued follow-up with psychiatry as an outpatient either at [facility] or [facility]. On the day of discharge, the patient did have an episode where she felt anxious and was hyperventilating and had some chest discomfort that was vague but lasted 1-2 minutes. After that she had more difficulty speaking and with generalized weakness. She also complained of headache. MRI brain with and without was obtained which was fortunately essentially normal. Dr. Meng did reevaluate the patient and felt she had conversion disorder. The patient's headache improved. Her weakness and difficulties with speech resolved. Because of her vague chest discomfort and EKG was obtained which revealed normal sinus rhythm and troponin was obtained 2 and these were within normal limits. On 10/07/2017 it was felt patient was stable for dismissal to home with plans for follow-up soon with Dr. Post. She is to follow-up either with [facility] or [facility] for her depression and anxiety. Discharge Plan - Discharge Disposition Discharge Date: 10/07/17 Disposition: Discharged Home, Self-Care *Condition: Stable Reason For Visit (Visit label in EMR): L side pain - Discharge Medications *Discharge Medications: New Sertraline [Zoloft] 50 mg PO DAILY #30 tab predniSONE [Prednisone] 10 mg PO DAILY 3 Days #3 tab ClonazePAM [Klonopin] 0.5 mg PO BID #10 tab Continue Cholecalciferol (Vitamin D3) [Vitamin D3] 5,000 unit PO DAILY Chlorzoxazone [Parafon Forte] 500 mg PO HS Vitamin B 1 tab PO DAILY - Discharge Packet/Instructions *Diet: Regular *Activity: Regular activity as tolerated *Pain Management/Treatment: Tylenol *Wound Care: None Additional Instructions: Take medications as directed. Prednisone 10 mg daily for 3 more days. Follow up with Dr Post this week. Call [facility] and schedule follow up apt with psychiatrist *Expected Signs/Symptoms: Improvement in symptoms *Notify Physician if: worsening symptoms or concerns *During Business Hours Contact: Dr Post *After Business Hours Contact: call or contact centre coach Physician *Pending Lab/Results: No Pending Lab - Referrals/Follow Up *Referrals/Follow Up: Chris Post MD [Family Provider] - (Please make follow-up appointment for ThursdayOct 12 at 9:45am with a check in time at 9:30am) - Patient Handouts - Dismissal Complete Discharge Instructions are:: Complete Physician Narrative - Narrative Attestation Narrative: Date: 10/07/17 Time: 2135
[2017-10-08] MEDS ORDERED: SERTRALINE 50 MG TABLET PO SCH (09:00)
== END 2017-10-07 17:07 | disposition home or self-care (01) ==
LOC: MED 19:55 → ED 19:55 → SUATTDRO 23:56 → MED 10-06
PROVIDERS: ADMIT Internal Medicine; ATTEND Internal Medicine